=== PATIENT | female | born 2005 ===

== ENCOUNTER 2024-05-25 05:50 | Day surgery (SDC) | payer OTHER ==
[2024-05-25] MEDS ORDERED: CEFTRIAXONE SODIUM 2,000 MG VIAL ONE (08:12)
[2024-05-25] MEDS ORDERED: METRONIDAZOLE/SODIUM CHLORIDE 500 MG/100 ML PIGGYBACK IV ONE ×3 (08:13→10:00)
[2024-05-25] MEDS ORDERED: HEMOSTATIC MATRIX 1 KIT KIT TOP ONE (08:56)
[2024-05-25] MEDS ORDERED: DIBUCAINE 30 GM TUBE ONE (09:02)
[2024-05-25] MEDS ORDERED: THROMBIN,HU/FIBRINOGEN/CALCIUM 10 ML SYRINGE TOP ONE ×2 (09:31→10:00)
[2024-05-25] MEDS ORDERED: CEFTRIAXONE SODIUM 2,000 MG VIAL IV ONE (10:00)
== END 2024-05-25 17:10 | disposition home or self-care (01) ==
LOC: CIR.AMB 05:50
PROVIDERS: ATTEND Colon & Rectal Surgery
DX: L05.91 Pilonidal cyst without abscess (principal); Z91.013 Allergy to seafood; Z91.02 Food additives allergy status